=== PATIENT | female | born 1955 | race Caucasian/White ===

== ENCOUNTER → 2017-05-05 | Day surgery (SDC) | payer BC ==
[2017-04-10 08:31] VITALS: Ht 156.2 cm; Wt 59.1 kg
[~2017-05-05] VITALS: Ht 156.2 cm; Wt 59.1 kg
[~2017-05-05] MED LIST: 500ML BSS 0.3ML EPI 1:1000PF IRRIG ONE; ACETAMINOPHEN 325 MG TAB PO PRN; ALBU18002 INH; AMVISC PLUS 0.8ML SYRINGE INT OCU ONE; ASPCH81X PO; ATOR-24 PO; ATROPINE SULFATE 0.1 MG/ML 5ML SYR IV PRN; BSS FLUSH ONE; CALC600T9 PO; CYAN500T13 PO; EpHEDrine SULFATE INJ 50 MG/ML AMP IV PRN; EpINEphrine INJ 1MG/ML AMP 1 MG/ML AMP ONE; FLUT1INH7 INH; GABA-113 PO; LACTATED RINGER'S 1000ML 500 ML IV SCH; LIDOCAINE 3.5% OPH GEL PER APPLICATION CHARGE ONE; LIDOCAINE HCL 1% MPF 2 ML VIAL ONE; METO25TA56 PO; MIDAZOLAM HCL 1 MG/ML 2ML VIAL ONE; NTRGSL/4 UT; PANT40TA PO; POVIDONE-IODINE OP SOLN 30 ML BTL ONE; PROPARACAINE 0.5% OP SOLN PER DROP CHARGE OPR SCH; ROPI0.25 PO; ROPI1TAB PO; SUMA100T15 PO; TICA1TAB PO; TOBRAMYCIN/DEXAMETHASONE OPH OINT PER APPLN CHARGE ONE; VITAMIN D3 PO
--- NOTE | 2017-05-05 11:14 | History & Physical Bridge - [place] ---
H&P Re-Evaluation Bridge Note: I have examined the patient, reviewed the History & Physical and in the interval since the performance of the History & Physical I have noted the following changes of clinical significance: Diagnosis: Right Cataract Procedure: Right Cataract Removal with Lens Implant No changes noted
[2017-05-05] MEDS: PHENYLEPHRINE HCL 2.5% OP SOLN PER DROP CHARGE OPR SCH ×2 (11:16→11:21)
[2017-05-05] MEDS: TROPICAMIDE 1% OP SOLN PER DROP CHARGE OPR SCH ×2 (11:17→11:22)
[2017-05-05] MEDS: CYCLOPENTOLATE HCL 1% OP SOLN PER DROP CHARGE OPR SCH ×2 (11:18→11:23)
[2017-05-05] MEDS: KETOROLAC 0.5% OP SOLN PER DROP CHARGE OPR SCH ×2 (11:19→11:24)
[2017-05-05] MEDS: GATIFLOXACIN OP SOLN PER DROP CHARGE OPR SCH ×2 (11:20→11:30)
--- NOTE | 2017-05-05 12:20 | [facility] Operative Report ---
Operative Report Date of Service May 05, 2017. Operative Report 1. PREOPERATIVE DIAGNOSIS: Cataract of the right eye. 2. POSTOPERATIVE DIAGNOSIS: Same. 3. PROCEDURE: Phacoemulsification with intraocular lens implantation of the right eye. SURGEON: Dr. Marcello Hernandez. ANESTHESIA: Topical Lidocaine gel, 1% Non- Preserved intracameral Lidocaine, and monitored intravenous sedation. INDICATIONS FOR THE PROCEDURE: The patient is a 61 - year-old female with a history of cataract of the right eye causing significant visual impairment. The details of the proposed procedure were explained to the patient who asked appropriate questions and following discussion of all risks, benefits and alternatives agreed to have the procedure done. 4. OPERATION AND FINDINGS: DESCRIPTION OF PROCEDURE: After informed consent was obtained, the patient was brought to the Operating Room at the [facility]. The patient was placed in a supine position and then the right eye was prepped and draped in the usual sterile fashion for intraocular surgery. A drop of topical Lidocaine gel was placed in the operative eye. A wire lid speculum was then placed in the fornices. A corneal paracentesis was then created temporally. The Non-Preserved Lidocaine was then instilled into the anterior chamber. The anterior chamber was then pressurized with viscoelastic. A 2.0 mm clear corneal incision was then created temporally. A cystotome was inserted into the anterior chamber and used to create a tear in the anterior lens capsule. This capsular tear was then used to create a small flap and the flap was dragged in a counterclockwise direction in order to create a continuous curvilinear capsulorrhexis. Hydrodissection was accomplished with balanced salt solution. Phacoemulsification of the lens nucleus was then performed in a standard [id number] technique. The phaco time was 16 seconds with an average power of 10 %. The remaining cortical material was removed using irrigation aspiration. The capsular bag was then filled with viscoelastic. A [employer]ch [employer] Lomb MI60L +19.5 diopters lens was then loaded into the injector and injected into the capsular bag. The remaining viscoelastic was removed with the irrigation aspiration handpiece. The wound was hydrated and then checked and found to be watertight. The intraocular pressure was checked and found to be adequate. The wire lid speculum was removed and the patient's face was cleaned and dried. TobraDex ointment was placed in the inferior fornix. The patient was discharged to the Recovery Room having tolerated the procedure well. There were no complications. The patient will be seen tomorrow in the office for follow-up. I attest to the content of the Intraoperative Record and any orders documented therein. Any exceptions are noted below.
--- NOTE | 2017-05-05 12:21 | Discharge Instructions-SurgCtr ---
Discharge Instructions Date of Service May 05, 2017. Visit Reason for Visit: Right Cataract Discharge Discharge Diagnosis / Problem: cataract Discharge Goals Goal(s): Improve function Activity Recommendations Activity Limitations: per Instructions/Follow-up section Anesthesia . Post Anesthesia Instructions: If you have had General Anesthesia or IV Sedation: * Do not drive today. * Resume driving when surgeon permits. * Do not make important decisions or sign legal documents today. * Call surgeon for: 1. Temperature elevations greater than 101 degrees F. 2. Uncontrollable pain. 3. Excessive bleeding. 4. Persistent nausea and vomiting. 5. Medication intolerance (nausea, vomiting or rash). * For nausea and vomiting use only clear liquids such as: tea, soda, bouillon until nausea subsides, then gradually increase diet as tolerated. * If you have any concerns or questions, call your surgeon's office. If physician is unavailable and it is an emergency, call 911 or go to the nearest emergency room. . Diet Recommendations Home Diet: resume previous diet Procedures Procedures Performed: Right Cataract Phacoemulsification With Intraocular Lens Implant Pending Studies Studies pending at discharge: no Medical Emergencies . Who to Call and When: Medical Emergencies: If at any time you feel your situation is an emergency, please call 911 immediately. . Non-Emergent Contact Non-Emergency issues call your: Oriental Medicine Practitioner . . "Provider Documentation" section prepared by Marcello Hernandez. .
[2017-05-05 12:23] VITALS: TEMP 36.8
[2017-05-05 12:55] VITALS: BP 116/71; PULSE 65; O2SAT 97
--- NOTE | 2017-05-05 12:59 | Anesthesia Progress Nt - [facility] ---
Anesthesia Post Op Note Date & Time May 05, 2017 at 12:59 Vital Signs Pain Intensity: 0 Vital Signs Past 12 Hours Date Time Temp Pulse Resp B/P (MAP) Pulse Ox O2 Delivery O2 Flow Rate FiO2 05/05/17 12:55 65 16 116/71 (86) 97 Room Air 05/05/17 12:23 36.8 59 20 109/75 (86) 97 Room Air 05/05/17 11:01 36.0 59 20 121/60 (80) 99 Room Air Notes Mental Status: alert / awake / arousable, participated in evaluation Pt Amnestic to Procedure: Yes Nausea / Vomiting: adequately controlled Pain: adequately controlled Airway Patency, RR, SpO2: stable & adequate BP & HR: stable & adequate Hydration State: stable & adequate Anesthetic Complications: no major complications apparent
== END | disposition home or self-care (01) ==
LOC: X.SURG 10:44
PROVIDERS: ATTEND Ophthalmology
DX: H26.9 Unspecified cataract (principal); J45.909 Unspecified asthma, uncomplicated; E78.4 Other hyperlipidemia; K21.9 Gastro-esophageal reflux disease without esophagitis; I25.119 Atherosclerotic heart disease of native coronary artery with unspecified angina pectoris; F17.200 Nicotine dependence, unspecified, uncomplicated; I25.2 Old myocardial infarction; I10 Essential (primary) hypertension; Z86.718 Personal history of other venous thrombosis and embolism; Z91.040 Latex allergy status; Z88.0 Allergy status to penicillin; Z88.2 Allergy status to sulfonamides; Z79.899 Other long term (current) drug therapy; Z98.890 Other specified postprocedural states

== ENCOUNTER → 2017-05-19 | Day surgery (SDC) | payer BC ==
[2017-05-07 09:12] VITALS: Ht 156.2 cm; Wt 59.1 kg
[~2017-05-19] VITALS: Ht 156.2 cm; Wt 59.1 kg
[~2017-05-19] MED LIST changes: +FENTANYL CITRATE INJ 50 MCG/1 ML 2 ML VIAL IV PRN; +OCUCOAT 1 ML SOLN IO ONE; +ONDANSETRON INJ 2 MG/ML 2 ML VIAL IV PRN; +PROPARACAINE 0.5% OP SOLN PER DROP CHARGE OPL SCH; -PROPARACAINE 0.5% OP SOLN PER DROP CHARGE OPR SCH
[2017-05-19] MEDS: PHENYLEPHRINE HCL 2.5% OP SOLN PER DROP CHARGE OPL SCH ×2 (11:15→11:21)
[2017-05-19] MEDS: TROPICAMIDE 1% OP SOLN PER DROP CHARGE OPL SCH ×2 (11:17→11:22)
[2017-05-19] MEDS: CYCLOPENTOLATE HCL 1% OP SOLN PER DROP CHARGE OPL SCH ×2 (11:18→11:23)
--- NOTE | 2017-05-19 11:18 | History & Physical Bridge - [place] ---
H&P Re-Evaluation Bridge Note: I have examined the patient, reviewed the History & Physical and in the interval since the performance of the History & Physical I have noted the following changes of clinical significance Diagnosis: Left Cataract Procedure: Left Cataract Removal with Lens Implant : No changes noted
[2017-05-19] MEDS: KETOROLAC 0.5% OP SOLN PER DROP CHARGE OPL SCH ×2 (11:19→11:24)
[2017-05-19] MEDS: GATIFLOXACIN OP SOLN PER DROP CHARGE OPL SCH ×2 (11:20→11:25)
--- NOTE | 2017-05-19 11:58 | [facility] Operative Report ---
Operative Report Date of Service May 19, 2017. Operative Report 1. PREOPERATIVE DIAGNOSIS: Cataract of the left eye. 2. POSTOPERATIVE DIAGNOSIS: Same. 3. PROCEDURE: Phacoemulsification with intraocular lens implantation of the left eye. SURGEON: Dr. Marcello Hernandez. ANESTHESIA: Topical Lidocaine gel, 1% Non- Preserved intracameral Lidocaine, and monitored intravenous sedation. INDICATIONS FOR THE PROCEDURE: The patient is a 61 - year-old female with a history of cataract of the left eye causing significant visual impairment. The details of the proposed procedure were explained to the patient who asked appropriate questions and following discussion of all risks, benefits and alternatives agreed to have the procedure done. 4. OPERATION AND FINDINGS: DESCRIPTION OF PROCEDURE: After informed consent was obtained, the patient was brought to the Operating Room at the [facility]. The patient was placed in a supine position and then the left eye was prepped and draped in the usual sterile fashion for intraocular surgery. A drop of topical Lidocaine gel was placed in the operative eye. A wire lid speculum was then placed in the fornices. A corneal paracentesis was then created temporally. The Non-Preserved Lidocaine was then instilled into the anterior chamber. The anterior chamber was then pressurized with viscoelastic. A 2.0 mm clear corneal incision was then created temporally. A cystotome was inserted into the anterior chamber and used to create a tear in the anterior lens capsule. This capsular tear was then used to create a small flap and the flap was dragged in a counterclockwise direction in order to create a continuous curvilinear capsulorrhexis. Hydrodissection was accomplished with balanced salt solution. Phacoemulsification of the lens nucleus was then performed in a standard [id number]-nzajlxc technique. The phaco time was 17 seconds with an average power of 9 %. The remaining cortical material was removed using irrigation aspiration. The capsular bag was then filled with viscoelastic. A [employer]ch [employer] Lomb MI60L +19.5 diopters lens was then loaded into the injector and injected into the capsular bag. The remaining viscoelastic was removed with the irrigation aspiration handpiece. The wound was hydrated and then checked and found to be watertight. The intraocular pressure was checked and found to be adequate. The wire lid speculum was removed and the patient's face was cleaned and dried. TobraDex ointment was placed in the inferior fornix. The patient was discharged to the Recovery Room having tolerated the procedure well. There were no complications. The patient will be seen tomorrow in the office for follow-up. I attest to the content of the Intraoperative Record and any orders documented therein. Any exceptions are noted below.
--- NOTE | 2017-05-19 11:59 | Discharge Instructions-SurgCtr ---
Discharge Instructions Date of Service May 19, 2017. Visit Reason for Visit: Left Cataract Discharge Discharge Diagnosis / Problem: cataract Discharge Goals Goal(s): Improve function Activity Recommendations Activity Limitations: per Instructions/Follow-up section Anesthesia . Post Anesthesia Instructions: If you have had General Anesthesia or IV Sedation: * Do not drive today. * Resume driving when surgeon permits. * Do not make important decisions or sign legal documents today. * Call surgeon for: 1. Temperature elevations greater than 101 degrees F. 2. Uncontrollable pain. 3. Excessive bleeding. 4. Persistent nausea and vomiting. 5. Medication intolerance (nausea, vomiting or rash). * For nausea and vomiting use only clear liquids such as: tea, soda, bouillon until nausea subsides, then gradually increase diet as tolerated. * If you have any concerns or questions, call your surgeon's office. If physician is unavailable and it is an emergency, call 911 or go to the nearest emergency room. . Diet Recommendations Home Diet: resume previous diet Procedures Procedures Performed: Left Eye Cataract Phacoemulsification With Intraocular Lens Implant Pending Studies Studies pending at discharge: no Medical Emergencies . Who to Call and When: Medical Emergencies: If at any time you feel your situation is an emergency, please call 911 immediately. . Non-Emergent Contact Non-Emergency issues call your: Insecticide Maker . . "Provider Documentation" section prepared by Marcello Hernandez. .
[2017-05-19 12:02] VITALS: TEMP 36.6
--- NOTE | 2017-05-19 12:27 | Anesthesia Progress Nt - [facility] ---
Anesthesia Post Op Note Date & Time May 19, 2017 at 12:27 Vital Signs Pain Intensity: 0 Vital Signs Past 12 Hours Date Time Temp Pulse Resp B/P (MAP) Pulse Ox O2 Delivery O2 Flow Rate FiO2 05/19/17 12:02 36.6 66 16 115/70 (85) 95 Room Air 05/19/17 11:05 36.7 64 18 107/71 (83) 97 Room Air Notes Mental Status: alert / awake / arousable, participated in evaluation Pt Amnestic to Procedure: Yes Nausea / Vomiting: adequately controlled Pain: adequately controlled Airway Patency, RR, SpO2: stable & adequate BP & HR: stable & adequate Hydration State: stable & adequate Anesthetic Complications: no major complications apparent
[2017-05-19 12:41] VITALS: BP 104/72; PULSE 74; O2SAT 95
== END | disposition home or self-care (01) ==
LOC: X.SURG 09:45
PROVIDERS: ATTEND Ophthalmology
DX: H26.9 Unspecified cataract (principal); F17.210 Nicotine dependence, cigarettes, uncomplicated; K21.9 Gastro-esophageal reflux disease without esophagitis; I25.119 Atherosclerotic heart disease of native coronary artery with unspecified angina pectoris; E55.9 Vitamin D deficiency, unspecified; M81.0 Age-related osteoporosis without current pathological fracture; G25.81 Restless legs syndrome; E78.4 Other hyperlipidemia; Z79.899 Other long term (current) drug therapy; Z79.82 Long term (current) use of aspirin; Z79.52 Long term (current) use of systemic steroids; Z88.0 Allergy status to penicillin; Z88.2 Allergy status to sulfonamides; I25.2 Old myocardial infarction; Z88.8 Allergy status to other drugs, medicaments and biological substances; Z86.718 Personal history of other venous thrombosis and embolism

== ENCOUNTER 2021-03-20 15:52 | Observation (INO) ==
[2021-03-20 16:22] LABS: Basophils # (auto) 0.02 K/uL (0-0.2); Basophils % (auto) 0.2 %; Eosinophils # (auto) 0.67 K/uL (0-0.5); Eosinophils % (auto) 8.1 %; Hematocrit (blood only) 33.3 % (37-47); Immature Granulocytes # (auto) 0.04 K/uL (0.00-0.02); Immature Granulocytes % (auto) 0.5 %; Lymphocytes # (auto) 0.94 K/uL (1.2-3.4); Lymphocytes % (auto) 11.3 %; Mean Corpuscular Volume 93.3 fL (80-100); Mean Platelet Volume 9.6 fL (7.4-10.4); Monocytes # (auto) 0.77 K/uL (0.11-0.59); Monocytes % (auto) 9.3 %; Neutrophils # (auto) 5.85 K/uL (1.4-6.5); Neutrophils % (auto) 70.6 %; Platelet Count 326 K/uL (130-400); RDW Coefficient of Variation 17.3 % (11.5-14.5); RDW Standard Deviation 59.4 fL (36.4-46.3); Red Blood Count 3.57 M/uL (4.2-5.4); White Blood Count 8.29 K/uL (4.8-10.8)
[2021-03-20 16:45] LABS: Alanine Aminotransferase 10 U/L (7-52); Albumin Globulin Ratio 1.1 (0.9-2); Albumin Level 3.4 gm/dl (3.4-5.0); Alkaline Phosphatase 64 U/L (34-104); Anion Gap 8 (3-11); Aspartate Aminotransferase 10 U/L (13-39); BUN Creatinine Ratio 18.9 (10-20); Bilirubin,Total 0.3 mg/dl (0.2-1.0); Blood Urea Nitrogen 17 mg/dl (6-23); Calcium 9.3 mg/dl (8.5-10.1); Carbon Dioxide 27 mmol/L (21-32); Chloride 106 mmol/L (98-107); Creatinine Clr Calc Pharmacy 58.2 ml/min; D Dimer 2630 ug/L FEU (0-500); Est GFR (African American) 78.3 ml/min; Est GFR (Non-African American) 67.6 ml/min; Globulin 3.1 gm/dl (2.5-4.0); Glucose 95 mg/dl (70-99(Fasting)); Lipase 5 U/L (11-82); Potassium 3.6 mmol/L (3.5-5.1); Sodium 141 mmol/L (136-145); Total Protein 6.5 gm/dl (6.0-8.3)
[2021-03-20 17:06] LABS: Troponin I < 0.03 ng/ml (0-0.04)
--- NOTE | 2021-03-20 17:16 | Emergency Department Note ---
Impression & Plan Shortness of breath, Substernal chest pain, Elevated d-dimer ED Provider Note INFORMANT: Patient ED PROVIDER(S): Paul Iglesias MD CHIEF COMPLAINT: PLAN: Disposition: Admitted Condition: Good Outpatient prescription management: none Referral: None MEDICAL DECISION MAKING: Patient presented to the emergency department because of exertional shortness of breath and chest pain. A work-up was initiated. Her ECG did not show any acute findings. The patient had some mild opacities noted in the bilateral bases on chest x-ray. She was diagnosed with a multifocal pneumonia previously. The patient's troponin, BNP and CBC were unremarkable. The patient's chemistry panel was negative. Her D-dimer was significantly elevated. Given her prior history CT imaging of the chest was performed again. This revealed no evidence of thromboembolic disease. Patchy density noted again but were unchanged. Procalcitonin was added and was negative. Infectious etiology seems less likely given the patient's antibiotic treatment and lab results coupled with the CT findings. She does note exertional chest discomfort and with her prior cardiac history further management was felt to be appropriate. Consultation was made with Dr. Jose Flores, [facility] hospitalist service. Patient was evaluated in the ER admitted for further management. Triage Nursing notes reviewed and agree them. Vital Signs: reviewed and remarkable for no significant abnormalities Differential diagnosis: Cardiac ischemia, aortic dissection, pulmonary embolism, pneumothorax, pneumonia, pericarditis, myocarditis, esophageal rupture, GERD, cholecystitis, pancreatitis, musculoskeletal, as well as other pathologies. Diagnostics interpreted by me: ECG: Twelve-lead ECG reveals normal sinus rhythm at 80 bpm. Incomplete right bundle branch block. Nonspecific ST. When compared to prior ECG right bundle b ranch block pattern is similar with an RSR prime pattern noted previously. No significant changes in the ST segments. Cardiac Monitoring: Cardiac monitoring ordered by me: The patient was placed on continuous cardiac monitoring and observed. It revealed a normal sinus rhythm at 92 beats per minute without ectopy or evidence of dysrhythmia. Imaging studies: Chest x-ray and CT scan as noted above. HPI: The patient is a 65 year old female who presents to the Emergency Room with complaints of chest pain. This started over the last 2 to 3 days and is worsening. The patient also notes the following associated symptoms, shortness of breath. The patient states that she had similar symptoms about 2 weeks ago. She was seen in the emergency department. Chest imaging raise concerns for multifocal pneumonia. Covid testing negative. Patient was treated with prednisone and doxycycline. She stated she was feeling somewhat better with the prednisone and the chest discomfort improved. She then noted with exertion or any physical activity her symptoms returned over the last few days. The patient has taken no new medication other than the prednisone and doxycycline for relieving factors. Current pain is rated as 4/10. Pt denies LOC, headache, fevers, chills, diaphoresis, visual changes, neck pain, nausea, vomiting, abdominal pain, back pain, melena, hematochezia, urinary symptoms, numbness, weakness, lymphadenopathy, rash, or other complaints. ROS: See above HPI for pertinent positives & negatives. A total of 10 systems reviewed and were otherwise negative. PAST MEDICAL HISTORY:See Below , PE, ACS, small cell lung cancer PAST SURGICAL HISTORY:See Below, cardiac stent FAMILY HISTORY:See Below SOCIAL HISTORY:See Below, HOME MEDICATIONS:See Below ALLERGIES:See Below VITALS:See Below PHYSICAL EXAMINATION: GENERAL: Awake, alert, well-appearing, in no distress HENT: Normocephalic, atraumatic. Oropharynx unremarkable. EYES: Normal conjunctiva. Sclera non-icteric. NECK: Inspection normal. Non-tender. Supple. No nuchal rigidity. FROM. No masses. RESPIRATORY: Clear to auscultation. No wheezes. No rales. Normal respiratory effort. CARDIAC: Normal rate. Normal rhythm. No murmurs. No rubs. Extremities warm and well perfused. Pulses equal. No JVD. GI: Soft, non-distended. No tenderness to palpation. No rebound or guarding. No masses. RECTAL: Deferred. MUSCULOSKELETAL: Atraumatic. Chest examination reveals no tenderness. The back is symmetrical on inspection without obvious abnormality. There is no CVA tenderness to palpation. No joint edema. LOWER EXTREMITIES: Calves are equal size bilaterally and non-tender. No edema. No discoloration. NEURO: Normal sensorium. No sensory or motor deficits noted. SKIN: No rash or jaundice noted. Paul Iglesias MD Past Med/Surg History Social History Smoking Status: Never smoker Feels Safe at Home: Yes Allergies Allergies Allergy/AdvReac Type Severity Reaction Status Date / Time Penicillins Allergy Intermediate RED/ITCHING Verified 03/20/21 16:39 WITH SWELLING Sulfa (Sulfonamide Allergy Intermediate ITCHING/RED Verified 03/20/21 16:39 Antibiotics) latex AdvReac Intermediate RASH/BLISTE Verified 03/20/21 16:39 RS ADHESIVE AdvReac Intermediate Blisters Uncoded 03/20/21 16:39 Home Meds Home Medications Medication Instructions Recorded Confirmed ropinirole 1 mg tablet 1 mg PO HS 03/09/21 03/20/21 aspirin 81 mg tablet,delayed 81 mg PO DAILY@1200 03/20/21 03/20/21 release calcium carbonate 600 mg-vitamin 1 tab PO BID 03/20/21 03/20/21 D3 10 mcg (400 unit) tablet (Calcium 600 + D(3)) cholecalciferol (vitamin D3) 25 25 mcg PO DAILY@1200 03/20/21 03/20/21 mcg (1,000 unit) tablet (Vitamin D3) cyanocobalamin (vitamin B-12) 500 1,000 mcg PO DAILY@1200 03/20/21 03/20/21 mcg tablet (Vitamin B-12) doxycycline hyclate 100 mg capsule 100 mg PO BID 03/20/21 03/20/21 ferrous sulfate 325 mg (65 mg 325 mg PO TID 03/20/21 03/20/21 iron) tablet gabapentin 300 mg capsule 300 mg PO TID 03/20/21 03/20/21 magnesium oxide 400 mg PO BID 03/20/21 03/20/21 metoprolol tartrate 25 mg tablet 25 mg PO BID 03/20/21 03/20/21 montelukast 10 mg tablet 10 mg PO HS 03/20/21 03/20/21 pantoprazole 40 mg tablet,delayed 40 mg PO BID 03/20/21 03/20/21 release potassium chloride 20 mEq 40 meq PO BID 03/20/21 03/20/21 tablet,extended release(part/cryst) ropinirole 0.25 mg tablet 0.5 mg PO DAILY 03/20/21 03/20/21 rosuvastatin 40 mg tablet 90 mg PO HS 03/20/21 03/20/21 sucralfate 1 gram tablet 1 g PO ACHS 03/20/21 03/20/21 Results & Data (ED) Vital Signs Vital Signs - 24 hr 03/20/21 15:59 03/20/21 16:45 03/20/21 17:00 Temperature 36.5 C Temperature Source Temporal Artery Scan Pulse Rate 100 H Pulse Rate [Apical] 86 Respiratory Rate 22 22 Respiratory Effort / Characteristics Non-Labored Spontaneous Respiratory Depth Normal Blood Pressure 130/45 L Blood Pressure [Left Arm] 99/70 L Blood Pressure Mean 73 Blood Pressure Mean [Left Arm] 79 Pulse Oximetry 97 95 Oxygen Delivery Method Room Air Room Air Room Air Sepsis Recent Fever Within 48 Hours No Sepsis New/Unexplained Change in Mental Status N/A Sepsis Action Taken by Nursing No Action Required 03/20/21 17:18 03/20/21 18:00 Temperature Temperature Source Pulse Rate Pulse Rate [Apical] 77 Respiratory Rate 18 Respiratory Effort / Characteristics Non-Labored Spontaneous Respiratory Depth Normal Blood Pressure Blood Pressure [Left Arm] 118/75 Blood Pressure Mean Blood Pressure Mean [Left Arm] 89 Pulse Oximetry 97 100 Oxygen Delivery Method Room Air Room Air Sepsis Recent Fever Within 48 Hours Sepsis New/Unexplained Change in Mental Status Sepsis Action Taken by Nursing Laboratory Data Result diagrams: 03/20/21 16:07 03/20/21 16:07 Lab Results 03/20/21 03/20/21 03/20/21 Range/Units 16:07 16:07 16:07 WBC 8.29 (4.8-10.8) K/uL RBC 3.57 L (4.2-5.4) M/uL Hgb 10.0 L (12.0-16.0) g/dL Hct 33.3 L (37-47) % MCV 93.3 (80-100) fL MCH 28.0 (25-34) pg MCHC 30.0 L (32-36) g/dL RDW Std Deviation 59.4 H (36.4-46.3) fL RDW Coeff of Cail 17.3 H (11.5-14.5) % Plt Count 326 (130-400) K/uL MPV 9.6 (7.4-10.4) fL Immature Gran % (Auto) 0.5 % Neut % (Auto) 70.6 % Lymph % (Auto) 11.3 % Banner % (Auto) 9.3 % Eos % (Auto) 8.1 % Baso % (Auto) 0.2 % Neut # (Auto) 5.85 (1.4-6.5) K/uL Lymph # (Auto) 0.94 L (1.2-3.4) K/uL Banner # (Auto) 0.77 H (0.11-0.59) K/uL Eos # (Auto) 0.67 H (0-0.5) K/uL Baso # (Auto) 0.02 (0-0.2) K/uL Immature Gran # (Auto) 0.04 H (0.00-0.02) K/uL APTT (21.0-31.0) Seconds PTT Ratio D-Dimer 2630 H* (0-500) ug/L FEU Sodium 141 (136-145) mmol/L Potassium 3.6 (3.5-5.1) mmol/L Chloride 106 (98-107) mmol/L Carbon Dioxide 27 (21-32) mmol/L Anion Gap 8 (3-11) BUN 17 (6-23) mg/dl Creatinine 0.90 (0.6-1.2) mg/dl Est Cr Clr Drug Dosing 58.2 ml/min Est GFR ( Amer) 78.3 ml/min Est GFR (Non-Af Amer) 67.6 ml/min BUN/Creatinine Ratio 18.9 (10-20) Glucose 95 (70-99(Fasting)) mg/dl Calcium 9.3 (8.5-10.1) mg/dl Total Bilirubin 0.3 (0.2-1.0) mg/dl AST 10 L (13-39) U/L ALT 10 (7-52) U/L Alkaline Phosphatase 64 (34-104) U/L Troponin I < 0.03 (0-0.04) ng/ml B-Natriuretic Peptide (0-100) pg/ml Total Protein 6.5 (6.0-8.3) gm/dl Albumin 3.4 (3.4-5.0) gm/dl Globulin 3.1 (2.5-4.0) gm/dl Albumin/Globulin Ratio 1.1 (0.9-2) Lipase 5 L (11-82) U/L Procalcitonin (0-0.5) ng/ml SARS-CoV-2, RNA, NAAT (NEGATIVE) 03/20/21 03/20/21 03/20/21 Range/Units 16:07 16:07 16:07 WBC (4.8-10.8) K/uL RBC (4.2-5.4) M/uL Hgb (12.0-16.0) g/dL Hct (37-47) % MCV (80-100) fL MCH (25-34) pg MCHC (32-36) g/dL RDW Std Deviation (36.4-46.3) fL RDW Coeff of [place] (11.5-14.5) % Plt Count (130-400) K/uL MPV (7.4-10.4) fL Immature Gran % (Auto) % Neut % (Auto) % Lymph % (Auto) % Banner % (Auto) % Eos % (Auto) % Baso % (Auto) % Neut # (Auto) (1.4-6.5) K/uL Lymph # (Auto) (1.2-3.4) K/uL Banner # (Auto) (0.11-0.59) K/uL Eos # (Auto) (0-0.5) K/uL Baso # (Auto) (0-0.2) K/uL Immature Gran # (Auto) (0.00-0.02) K/uL APTT 28.2 (21.0-31.0) Seconds PTT Ratio 1.1 D-Dimer (0-500) ug/L FEU Sodium (136-145) mmol/L Potassium (3.5-5.1) mmol/L Chloride (98-107) mmol/L Carbon Dioxide (21-32) mmol/L Anion Gap (3-11) BUN (6-23) mg/dl Creatinine (0.6-1.2) mg/dl Est Cr Clr Drug Dosing ml/min Est GFR ( Amer) ml/min Est GFR (Non-Af Amer) ml/min BUN/Creatinine Ratio (10-20) Glucose (70-99(Fasting)) mg/dl Calcium (8.5-10.1) mg/dl Total Bilirubin (0.2-1.0) mg/dl AST (13-39) U/L ALT (7-52) U/L Alkaline Phosphatase (34-104) U/L Troponin I (0-0.04) ng/ml B-Natriuretic Peptide 119 H (0-100) pg/ml Total Protein (6.0-8.3) gm/dl Albumin (3.4-5.0) gm/dl Globulin (2.5-4.0) gm/dl Albumin/Globulin Ratio (0.9-2) Lipase (11-82) U/L Procalcitonin 0.06 (0-0.5) ng/ml SARS-CoV-2, RNA, NAAT (NEGATIVE) 03/20/21 Range/Units 16:25 WBC (4.8-10.8) K/uL RBC (4.2-5.4) M/uL Hgb (12.0-16.0) g/dL Hct (37-47) % MCV (80-100) fL MCH (25-34) pg MCHC (32-36) g/dL RDW Std Deviation (36.4-46.3) fL RDW Coeff of [place] (11.5-14.5) % Plt Count (130-400) K/uL MPV (7.4-10.4) fL Immature Gran % (Auto) % Neut % (Auto) % Lymph % (Auto) % Banner % (Auto) % Eos % (Auto) % Baso % (Auto) % Neut # (Auto) (1.4-6.5) K/uL Lymph # (Auto) (1.2-3.4) K/uL Banner # (Auto) (0.11-0.59) K/uL Eos # (Auto) (0-0.5) K/uL Baso # (Auto) (0-0.2) K/uL Immature Gran # (Auto) (0.00-0.02) K/uL APTT (21.0-31.0) Seconds PTT Ratio D-Dimer (0-500) ug/L FEU Sodium (136-145) mmol/L Potassium (3.5-5.1) mmol/L Chloride (98-107) mmol/L Carbon Dioxide (21-32) mmol/L Anion Gap (3-11) BUN (6-23) mg/dl Creatinine (0.6-1.2) mg/dl Est Cr Clr Drug Dosing ml/min Est GFR ( Amer) ml/min Est GFR (Non-Af Amer) ml/min BUN/Creatinine Ratio (10-20) Glucose (70-99(Fasting)) mg/dl Calcium (8.5-10.1) mg/dl Total Bilirubin (0.2-1.0) mg/dl AST (13-39) U/L ALT (7-52) U/L Alkaline Phosphatase (34-104) U/L Troponin I (0-0.04) ng/ml B-Natriuretic Peptide (0-100) pg/ml Total Protein (6.0-8.3) gm/dl Albumin (3.4-5.0) gm/dl Globulin (2.5-4.0) gm/dl Albumin/Globulin Ratio (0.9-2) Lipase (11-82) U/L Procalcitonin (0-0.5) ng/ml SARS-CoV-2, RNA, NAAT NEGATIVE (NEGATIVE) Administered Medications Lactated Ringer's (Lr) 1,000 mls @ 80 mls/hr IV .[id number] ONE Stop: 03/21/21 09:08 Last Admin: 03/20/21 21:38 Dose: 80 mls/hr Documented by: [id number] Discontinued Medications Ioversol (Optiray 320 125ml) 109 ml IV ONCE ONE Stop: 03/20/21 17:27 Last Admin: 03/20/21 17:29 Dose: 109 ml Documented by: [id number] Imaging Data Radiologist's Impression: Chest X-Ray 03/20/21 16:07 XR chest 1V portable CLINICAL HISTORY: Atypical chest pain. COMPARISON STUDY: Chest radiograph and chest CT March 09, 2021. FINDINGS: Postoperative findings within the right hemithorax are noted. A small right pleural effusion has slightly increased since prior exam. Left midlung linear density is unchanged. There are persistent bibasilar opacities. There is no evidence for pulmonary edema. IMPRESSION: 1. Slight increase in size of a small right pleural effusion. 2. Persistent bilateral airspace opacities with interstitial thickening. The findings favor an infectious process. ACT 112: Negative or not required by law. Electronically signed by: Rolando Escamilla M.D. 03/20/2021 5:18 PM Chest CTA 03/20/21 17:11 CT ANGIOGRAPHY OF THE CHEST, PULMONARY EMBOLUS PROTOCOL CLINICAL HISTORY: SOB, +dimer, hx of small cell ca and pNA COMPARISON STUDY: Chest CT March 09, 2021. Chest radiograph performed earlier today. TECHNIQUE: Following IV administration of 109 mL of Optiray, helical axial images of the chest were obtained utilizing the pulmonary embolus protocol. Max imal intensity projections and sagittal and coronal reformats were viewed on an independent 3D workstation. IV contrast was administered without complication. Automated exposure control was utilized for the study. A dose lowering technique was utilized adhering to the principles of ALARA. CT DOSE: 272.03 mGy.cm FINDINGS: No pulmonary emboli are identified. Mild cardiomegaly is noted. No pericardial effusion. No enlarged axillary, mediastinal or hilar lymph nodes are present. There is no pneumothorax. Small right pleural effusion is similar to CT of March 09, 2021. Central airways are patent. Multiple irregular opacities throughout the lungs are unchanged since exam of March 09, 2021. These include a 3.6 cm linear subpleural density within the left upper lobe on image 186 of 283 and multiple small right upper and right middle lobe densities. There are stable postoperative findings following right lower lobectomy. No suspicious lesions are identified within visualized bony thorax. Upper abdomen is u nremarkable. Appearance of the chest is unchanged. Emphysema is present. IMPRESSION: 1. No pulmonary emboli identified. 2. Status post right lower lobectomy. No change in a small right pleural effusion. 3. No change in multifocal irregular opacities within the lungs since chest CT of March 09, 2021. These remain nonspecific. An infectious process is considered somewhat less likely given stability. A neoplastic etiology cannot be excluded. Several these likely reflect scarring. Follow-up chest CT in 3 months to ensure stability is recommended. 4. No thoracic lymphadenopathy. ACT 112: Negative or not required by law. Electronically signed by: Rolando Escamilla M.D. 03/20/2021 5:45 PM Discharge Plan Visit Data Chief Complaint: Chest Pain Stated Complaint: R CHEST PAIN WHEN COUGHING ED Provider: Paul Iglesias Discharge Problem: Shortness of breath, Substernal chest pain, Elevated d-dimer
--- NOTE | 2021-03-20 17:19 | XRay Report ---
XR chest 1V portable CLINICAL HISTORY: Atypical chest pain. COMPARISON STUDY: Chest radiograph and chest CT March 09, 2021. FINDINGS: Postoperative findings within the right hemithorax are noted. A small right pleural effusio n has slightly increased since prior exam. Left midlung linear density is unchanged. There are persis tent bibasilar opacities. There is no evidence for pulmonary edema. IMPRESSION: 1. Slight increase in size of a small right pleural effusion. 2. Persistent bilateral airspace opacities with interstitial thickening. The findings favor an infect ious process. ACT 112: Negative or not required by law. Electronically signed by: Rolando Escamilla M.D. 03/20/2021 5:18 PM
[2021-03-20] MEDS ORDERED: OPTIRAY 320 125ml IV ONE (17:26)
--- NOTE | 2021-03-20 17:47 | CT Scan Report ---
CT ANGIOGRAPHY OF THE CHEST, PULMONARY EMBOLUS PROTOCOL CLINICAL HISTORY: SOB, +dimer, hx of small cell ca and pNA COMPARISON STUDY: Chest CT March 09, 2021. Chest radiograph performed earlier today. TECHNIQUE: Following IV administration of 109 mL of Optiray, helical axial images of the chest were o btained utilizing the pulmonary embolus protocol. Maximal intensity projections and sagittal and cor onal reformats were viewed on an independent 3D workstation. IV contrast was administered without co mplication. Automated exposure control was utilized for the study. A dose lowering technique was ut ilized adhering to the principles of ALARA. CT DOSE: 272.03 mGy.cm FINDINGS: No pulmonary emboli are identified. Mild cardiomegaly is noted. No pericardial effusion. N o enlarged axillary, mediastinal or hilar lymph nodes are present. There is no pneumothorax. Small ri ght pleural effusion is similar to CT of March 09, 2021. Central airways are patent. Multiple irreg ular opacities throughout the lungs are unchanged since exam of March 09, 2021. These include a 3.6 cm linear subpleural density within the left upper lobe on image 186 of 283 and multiple small right upper and right middle lobe densities. There are stable postoperative findings following right lower lobectomy. No suspicious lesions are identified within visualized bony thorax. Upper abdomen is unre markable. Appearance of the chest is unchanged. Emphysema is present. IMPRESSION: 1. No pulmonary emboli identified. 2. Status post right lower lobectomy. No change in a small right pleural effusion. 3. No change in multifocal irregular opacities within the lungs since chest CT of March 09, 2021. T hese remain nonspecific. An infectious process is considered somewhat less likely given stability. A neoplastic etiology cannot be excluded. Several these likely reflect scarring. Follow-up chest CT in 3 months to ensure stability is recommended. 4. No thoracic lymphadenopathy. ACT 112: Negative or not required by law. Electronically signed by: Rolando Escamilla M.D. 03/20/2021 5:45 PM
--- NOTE | 2021-03-20 20:31 | History & Physical Report ---
Date of Service March 20, 2021 Assessment & Plan (1) Atypical chest pain: Plan: With exertional S OB symptoms (suspect COPD component) Right pleural effusion with elevated BNP ? CHF Rule out ACS History CAD status post stent SCLC status post surgery/chemoradiation, patient follows with [facility] oncology hx COPD, improved symptoms after recent outpatient steroid doxycycline course hx postop pulmonary embolism status post anticoagulation Choking symptoms with meals rule out esophageal dysfunction chronic anemia, hemoglobin at baseline past tobacco abuse OBS PCU Continue patient's home aspirin for secondary CAD prevention Lasix trial for pleural effusion given elevated BNP Follow troponin TTE, Cardiology consult Re: Chest pain, history CAD N.p.o. until patient seen by cardiology in a.m. in anticipation of procedure Aspiration precautions, RESERVOIR CARETAKER evaluation DVT prophylaxis. Lovenox subcu Full code Patient requesting update from providers. Mr. Lior Bronson, contact #[phone]. Text document was generated using [email or web address] voice recognition software. It may contain grammatical or spelling errors. Kindly contact undersigned for clarification of any documentation item in question. History of Present Illness Chief Complaint: Chest pain, shortness of breath Primary Care Provider: Donaldo Flaherty MD History obtained from patient, family, and records. Medical history significant for CAD status post stent, SCLC status post surgery/chemoradiation, COPD, history postop pulmonary embolism status post anticoagulation, chronic anemia (baseline hemoglobin 8-9 ), past tobacco abuse. Patient seen at the ER 12 days ago for 1 week history of cough and right sided chest pain symptoms. Episode of choking symptoms with meals/water intake for some time now CT chest did not show pulmonary emboli. Small right pleural effusion, status post right lower lobectomy. Emphysema. Multifocal irregular opacities within the lungs noted. Patient discharged on doxycycline and prednisone course. Improved symptoms as per patient after compliance with medication regimen 3 days history of achy recurrent right-sided chest pain/right upper abdominal pain symptoms with shortness of breath mostly on exertion. No unusual cough symptoms. No fluid retention as per patient. Patient brought by to the ER. 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 Allergies Allergy/AdvReac Type Severity Reaction Status Date / Time Penicillins Allergy Intermediate RED/ITCHING Verified 03/20/21 16:39 WITH SWELLING Sulfa (Sulfonamide Allergy Intermediate ITCHING/RED Verified 03/20/21 16:39 Antibiotics) latex AdvReac Intermediate RASH/BLISTE Verified 03/20/21 16:39 RS ADHESIVE AdvReac Intermediate Blisters Uncoded 03/20/21 16:39 Home Medications Medication Instructions Recorded Confirmed Type ropinirole 1 mg tablet 1 mg PO HS 03/09/21 03/20/21 History aspirin 81 mg tablet,delayed 81 mg PO DAILY@1200 03/20/21 03/20/21 History release calcium carbonate 600 mg-vitamin 1 tab PO BID 03/20/21 03/20/21 History D3 10 mcg (400 unit) tablet (Calcium 600 + D(3)) cholecalciferol (vitamin D3) 25 25 mcg PO DAILY@1200 03/20/21 03/20/21 History mcg (1,000 unit) tablet (Vitamin D3) cyanocobalamin (vitamin B-12) 500 1,000 mcg PO DAILY@1200 03/20/21 03/20/21 History mcg tablet (Vitamin B-12) doxycycline hyclate 100 mg capsule 100 mg PO BID 03/20/21 03/20/21 History ferrous sulfate 325 mg (65 mg 325 mg PO TID 03/20/21 03/20/21 History iron) tablet gabapentin 300 mg capsule 300 mg PO TID 03/20/21 03/20/21 History magnesium oxide 400 mg PO BID 03/20/21 03/20/21 History metoprolol tartrate 25 mg tablet 25 mg PO BID 03/20/21 03/20/21 History montelukast 10 mg tablet 10 mg PO HS 03/20/21 03/20/21 History pantoprazole 40 mg tablet,delayed 40 mg PO BID 03/20/21 03/20/21 History release potassium chloride 20 mEq 40 meq PO BID 03/20/21 03/20/21 History tablet,extended release(part/cryst) ropinirole 0.25 mg tablet 0.5 mg PO DAILY 03/20/21 03/20/21 History rosuvastatin 40 mg tablet 90 mg PO HS 03/20/21 03/20/21 History sucralfate 1 gram tablet 1 g PO ACHS 03/20/21 03/20/21 History Past Med/Surg History Social History Smoking Status: Former smoker Hx Alcohol Use: Yes Hx Substance Use: No Preferred Language: Yoruba Communication Ability: Effective Retail Experience Specialist Required: No Beliefs That Will Affect Care: None Current Living Situation: Spouse Feels Safe at Home: Yes Safety Concerns: Feels Safe At This Time Review of Systems Review of Systems: As per HPI, all 10 systems reviewed, all other ROS negative Physical Exam Physical Exam: GENERAL: Comfortable, obese, slightly hard of hearing, no respiratory distress SKIN: Pallor, warm HEENT: Alopecia, pale palpebral conjunctivae, no ptosis, dry buccal mucosa NECK : Supple, short neck, no tenderness CHEST : Decreased breath sounds right, no tenderness HEART : RRR, no obvious murmurs ABDOMEN: Some distention, nontender EXTREMITIES : No LE swelling/tenderness, no other conspicuous deformities noted NEUROLOGIC : Coherent, no facial asymmetry, mild hearing impairment, no other gross focality Results & Data Results & Data ([facility]) Vital Signs (Past 12 Hours) Vital Signs Temp Pulse Pulse Resp BP BP Pulse Ox 03/20/21 18:00 77 18 118/75 100 03/20/21 17:18 97 03/20/21 17:00 86 22 99/70 L 95 03/20/21 15:59 36.5 C 100 H 22 130/45 L 97 Laboratory Results Laboratory Results WBC 8.29 K/uL (4.8-10.8) 03/20/21 16:07 RBC 3.57 M/uL (4.2-5.4) L 03/20/21 16:07 Hgb 10.0 g/dL (12.0-16.0) L 03/20/21 16:07 Hct 33.3 % (37-47) L 03/20/21 16:07 MCV 93.3 fL (80-100) 03/20/21 16:07 MCH 28.0 pg (25-34) 03/20/21 16:07 MCHC 30.0 g/dL (32-36) L 03/20/21 16:07 RDW Std Deviation 59.4 fL (36.4-46.3) H 03/20/21 16:07 RDW Coeff of Cali 17.3 % (11.5-14.5) H 03/20/21 16:07 Plt Count 326 K/uL (130-400) 03/20/21 16:07 MPV 9.6 fL (7.4-10.4) 03/20/21 16:07 Immature Gran % (Auto) 0.5 % 03/20/21 16:07 Neut % (Auto) 70.6 % 03/20/21 16:07 Lymph % (Auto) 11.3 % 03/20/21 16:07 [place] % (Auto) 9.3 % 03/20/21 16:07 Eos % (Auto) 8.1 % 03/20/21 16:07 Baso % (Auto) 0.2 % 03/20/21 16:07 Neut # (Auto) 5.85 K/uL (1.4-6.5) 03/20/21 16:07 Lymph # (Auto) 0.94 K/uL (1.2-3.4) L 03/20/21 16:07 [place] # (Auto) 0.77 K/uL (0.11-0.59) H 03/20/21 16:07 Eos # (Auto) 0.67 K/uL (0-0.5) H 03/20/21 16:07 Baso # (Auto) 0.02 K/uL (0-0.2) 03/20/21 16:07 Immature Gran # (Auto) 0.04 K/uL (0.00-0.02) H 03/20/21 16:07 D-Dimer 2630 ug/L FEU (0-500) H* 03/20/21 16:07 Sodium 141 mmol/L (136-145) 03/20/21 16:07 Potassium 3.6 mmol/L (3.5-5.1) 03/20/21 16:07 Chloride 106 mmol/L (98-107) 03/20/21 16:07 Carbon Dioxide 27 mmol/L (21-32) 03/20/21 16:07 Anion Gap 8 (3-11) 03/20/21 16:07 BUN 17 mg/dl (6-23) 03/20/21 16:07 Creatinine 0.90 mg/dl (0.6-1.2) 03/20/21 16:07 Est Cr Clr Drug Dosing 58.2 ml/min 03/20/21 16:07 Est GFR ( Amer) 78.3 ml/min 03/20/21 16:07 Est GFR (Non-Af Amer) 67.6 ml/min 03/20/21 16:07 BUN/Creatinine Ratio 18.9 (10-20) 03/20/21 16:07 Glucose 95 mg/dl (70-99(Fasting)) 03/20/21 16:07 Calcium 9.3 mg/dl (8.5-10.1) 03/20/21 16:07 Total Bilirubin 0.3 mg/dl (0.2-1.0) 03/20/21 16:07 AST 10 U/L (13-39) L 03/20/21 16:07 ALT 10 U/L (7-52) 03/20/21 16:07 Alkaline Phosphatase 64 U/L (34-104) 03/20/21 16:07 Troponin I < 0.03 ng/ml (0-0.04) 03/20/21 16:07 B-Natriuretic Peptide 119 pg/ml (0-100) H 03/20/21 16:07 Total Protein 6.5 gm/dl (6.0-8.3) 03/20/21 16:07 Albumin 3.4 gm/dl (3.4-5.0) 03/20/21 16:07 Globulin 3.1 gm/dl (2.5-4.0) 03/20/21 16:07 Albumin/Globulin Ratio 1.1 (0.9-2) 03/20/21 16:07 Lipase 5 U/L (11-82) L 03/20/21 16:07 Procalcitonin 0.06 ng/ml (0-0.5) 03/20/21 16:07 SARS-CoV-2, RNA, NAAT NEGATIVE (NEGATIVE) 03/20/21 16:25 Impressions Chest X-Ray 03/20/21 16:07 XR chest 1V portable CLINICAL HISTORY: Atypical chest pain. COMPARISON STUDY: Chest radiograph and chest CT March 09, 2021. FINDINGS: Postoperative findings within the right hemithorax are noted. A small right pleural effusion has slightly increased since prior exam. Left midlung linear density is unchanged. There are persistent bibasilar opacities. There is no evidence for pulmonary edema. IMPRESSION: 1. Slight increase in size of a small right pleural effusion. 2. Persistent bilateral airspace opacities with interstitial thickening. The findings favor an infectious process. ACT 112: Negative or not required by law. Electronically signed by: Rolando Escamilla M.D. 03/20/2021 5:18 PM Chest CTA 03/20/21 17:11 CT ANGIOGRAPHY OF THE CHEST, PULMONARY EMBOLUS PROTOCOL CLINICAL HISTORY: SOB, +dimer, hx of small cell ca and pNA COMPARISON STUDY: Chest CT March 09, 2021. Chest radiograph performed earlier today. TECHNIQUE: Following IV administration of 109 mL of Optiray, helical axial image s of the chest were obtained utilizing the pulmonary embolus protocol. Maximal intensity projections and sagittal and coronal reformats were viewed on an independent 3D workstation. IV contrast was administered without complication. Automated exposure control was utilized for the study. A dose lowering technique was utilized adhering to the principles of ALARA. CT DOSE: 272.03 mGy.cm FINDINGS: No pulmonary emboli are identified. Mild cardiomegaly is noted. No pericardial effusion. No enlarged axillary, mediastinal or hilar lymph nodes are present. There is no pneumothorax. Small right pleural effusion is similar to CT of March 09, 2021. Central airways are patent. Multiple irregular opacities throughout the lungs are unchanged since exam of March 09, 2021. These include a 3.6 cm linear subpleural density within the left upper lobe on image 186 of [id number] and multiple small right upper and right middle lobe densities. There are stable postoperative findings following right lower lobectomy. No suspicious lesions are identified within visualized bony thorax. Upper abdomen is unremarkable. Appearance of the chest is unchanged. Emphysema is present. IMPRESSION: 1. No pulmonary emboli identified. 2. Status post right lower lobectomy. No change in a small right pleural effusion. 3. No change in multifocal irregular opacities within the lungs since chest CT of March 09, 2021. These remain nonspecific. An infectious process is considered somewhat less likely given stability. A neoplastic etiology cannot be excluded. Several these likely reflect scarring. Follow-up chest CT in 3 months to ensure stability is recommended. 4. No thoracic lymphadenopathy. ACT 112: Negative or not required by law. Electronically signed by: Rolando Escamilla M.D. 03/20/2021 5:[address] abdomen pelvis initial read: The solid organs are within normal limits. No obstruction. Normal appendix. No fracture. Small loculated right pleural effusion. Indeterminate spiculated nodules of the right lung measure up to 1 cm. EKG as per my interpretation:Rate 90, NSR, incomplete RBBB, no ischemia
[2021-03-20] MEDS ORDERED: LACTATED RINGER'S 1,000 ML IV ONE (20:39)
[2021-03-20 20:52] LABS: Partial Thromboplastin Ratio 1.1; Partial Thromboplastin Time 28.2 Seconds (21.0-31.0)
[2021-03-20] MEDS ORDERED: MONTELUKAST SODIUM 10 MG TABLET PO SCH (21:41)
[2021-03-20] MEDS ORDERED: ROSUVASTATIN CALCIUM 20 MG TAB PO SCH (21:41)
[2021-03-20] MEDS ORDERED: ACETAMINOPHEN 325 MG TAB PO PRN (21:41)
[2021-03-20] MEDS ORDERED: rOPINIRole HCL 1 MG TABLET PO SCH (21:41)
[2021-03-20] MEDS ORDERED: traMADol HCL 50 MG TABLET PO PRN (21:41)
[2021-03-20] MEDS ORDERED: MoRPHine SULFATE 4 MG/ML 1 ML CARP\\VIAL IV PRN (21:41)
[2021-03-20] MEDS ORDERED: PROMETHAZINE HCL 12.5 MG in SODIUM CHLORIDE 0.9% 50 ML IV PRN (21:41)
[2021-03-20] MEDS: DOXYCYCLINE HYCLATE 100 MG CAP PO SCH (23:34)
[2021-03-20] MEDS: METOPROLOL TARTRATE 25 MG TAB PO SCH (23:35)
[2021-03-20] MEDS: SUCRALFATE 1 GM TAB PO SCH (23:35)
[2021-03-20] MEDS: PANTOprazole 40 MG TAB PO SCH (23:36)
[2021-03-20] MEDS: FERROUS SULFATE 325 MG TAB PO SCH (23:37)
[2021-03-20] MEDS: GABAPENTIN 300 MG CAP PO SCH (23:37)
[2021-03-21 05:47] LABS: Basophils # (auto) 0.01 K/uL (0-0.2); Basophils % (auto) 0.1 %; Eosinophils # (auto) 0.62 K/uL (0-0.5); Hematocrit (blood only) 29.4 % (37-47); Immature Granulocytes # (auto) 0.07 K/uL (0.00-0.02); Lymphocytes # (auto) 0.95 K/uL (1.2-3.4); Lymphocytes % (auto) 13.7 %; Mean Corpuscular Hgb Conc 30.6 g/dL (32-36); Mean Corpuscular Volume 91.3 fL (80-100); Monocytes # (auto) 0.62 K/uL (0.11-0.59); Neutrophils # (auto) 4.65 K/uL (1.4-6.5); Neutrophils % (auto) 67.2 %; Partial Thromboplastin Ratio 1.1; Partial Thromboplastin Time 28.8 Seconds (21.0-31.0); Platelet Count 278 K/uL (130-400); RDW Coefficient of Variation 17.3 % (11.5-14.5); RDW Standard Deviation 58.4 fL (36.4-46.3); Red Blood Count 3.22 M/uL (4.2-5.4); White Blood Count 6.92 K/uL (4.8-10.8)
[2021-03-21 06:09] LABS: Troponin I < 0.03 ng/ml (0-0.04)
[2021-03-21 06:20] LABS: Anion Gap 9 (3-11); BUN Creatinine Ratio 14.5 (10-20); Blood Urea Nitrogen 12 mg/dl (6-23); Calcium 8.6 mg/dl (8.5-10.1); Carbon Dioxide 24 mmol/L (21-32); Chloride 105 mmol/L (98-107); Chol HDL Ratio 3.4 (0-5); Cholesterol 112 mg/dl (0-200); Creatinine Clr Calc Pharmacy 63.1 ml/min; Est GFR (African American) 86.4 ml/min; Est GFR (Non-African American) 74.5 ml/min; Glucose 114 mg/dl (70-99(Fasting)); HDL Cholesterol 33 mg/dl; LDL Cholesterol Calculated 60 mg/dl; Potassium 4.1 mmol/L (3.5-5.1); Sodium 138 mmol/L (136-145); Triglycerides 95 mg/dl (0-150); VLDL Cholesterol 19 mg/dl (0-30)
[2021-03-21] MEDS ORDERED: FUROSEMIDE INJ 20 MG/2 ML VIAL IV ONE (06:30)
--- NOTE | 2021-03-21 08:26 | CT Scan Report ---
CT OF THE ABDOMEN AND PELVIS WITHOUT CONTRAST CLINICAL HISTORY: Right-sided abdominal pain. History of lung cancer. COMPARISON STUDY: No previous studies for comparison. TECHNIQUE: Axial images of the abdomen and pelvis were obtained without IV contrast. Images were revi ewed in the axial, sagittal, and coronal planes. Automated exposure control was utilized for the mihir dy. A dose lowering technique was utilized adhering to the principles of ALARA. FINDINGS: Postoperative findings consistent with right lower lobectomy are noted. A small right pleur al effusion is noted. Note is again made of multiple indeterminate irregular nodules within the lower lungs, including a 1.9 cm right lower lung nodule on image 35 of 461. These are unchanged since [facility] t CT of March 09, 2021. No pneumatosis, free air or portal venous gas is present. Unenhanced images of the liver, spleen, adrenal glands, kidneys and pancreas are unremarkable. There is no hydronephro sis. Sensitivity for detection of urinary calculi is diminished given excreted contrast. There is no evidence for a bowel obstruction. The appendix is normal. No abdominal or pelvic lymphadenopathy is p resent. Postoperative findings within the lumbosacral spine are present. There is no ascites. No bili anshu or pancreatic ductal dilatation is present. There is no peripancreatic or pericholecystic infiltr ation. IMPRESSION: 1. No acute process or evidence for metastatic disease within the abdomen or pelvis on unenhanced exa m. 2. Status post right lower lobectomy. Small right pleural effusion. Redemonstration of multiple indet erminate irregular nodules within the lower lungs which could be neoplastic or infectious. Short-term follow-up chest CT is recommended in 3 months. ACT 112: Negative or not required by law. Electronically signed by: Rolando Escamilla M.D. 03/21/2021 8:25 AM
--- NOTE | 2021-03-21 08:29 | Cardiology Consultation ---
Date of Consultation March 21, 2021 Assessment & Plan (1) Atypical chest pain: (2) Multifocal pneumonia: (3) Cough: (4) SCLC (small cell lung carcinoma): (5) History of lobectomy of lung: (6) COPD (chronic obstructive pulmonary disease): (7) Tobacco abuse, in remission: 65-year-old woman with small cell lung carcinoma status post right lobectomy with persistent pain postoperatively. The discomfort is completely reproducible with palpation or movement. Ischemic work-up is unremarkable: Without ischemic EKG changes, negative troponin x2 and no wall motion abnormalities on echocardiogram. I do not see any cardiac component to her chest discomfort. No further cardiac testing or invention necessary at this time. Okay to DC to home from a cardiac standpoint. No medication changes from a cardiac standpoint. History of Present Illness Reason for Consultation: chest pain Requesting Physician: Dr. Ortiz Attending Physician: Domingo Ortiz MD History of Present Illness It was my pleasure to see Mrs. Bronson in cardiac consultation today March 21, 2021. She is a very pleasant yet medically complex 65-year-old woman who presented to [facility] emergency department with complaints of chest pain. Patient states that she has been having rather constant chest discomfort ever since undergoing lobectomy several weeks ago. She describes a right-sided pain that is worse with movement, deep inhalation or palpation. She was recently diagnosed with COVID-19 pneumonia and had significant coughing which worsened the discomfort. Her coughing has subsided but the pain persists. She states that she feels short of breath at rest necessitating her to take deeper breaths. With these deeper breaths the pain worsens. Past Medical History: Coronary artery disease 2016 s/p RCA stent x 2 Dyslipidemia Fibromyalgia Gastroesophageal reflux disease 07/05/2013 Migraine 02/02/2014 Pulmonary embolism (HCC) 01/2015 Following lumbar fusion surgery Tobacco abuse Allergies Allergy/AdvReac Type Severity Reaction Status Date / Time Penicillins Allergy Intermediate RED/ITCHING Verified 03/20/21 16:39 WITH SWELLING Sulfa (Sulfonamide Allergy Intermediate ITCHING/RED Verified 03/20/21 16:39 Antibiotics) latex AdvReac Intermediate RASH/BLISTE Verified 03/20/21 16:39 RS ADHESIVE AdvReac Intermediate Blisters Uncoded 03/20/21 16:39 Home Medications Medication Instructions Recorded Confirmed Type ropinirole 1 mg tablet 1 mg PO HS 03/09/21 03/20/21 History aspirin 81 mg tablet,delayed 81 mg PO DAILY@1200 03/20/21 03/20/21 History release calcium carbonate 600 mg-vitamin 1 tab PO BID 03/20/21 03/20/21 History D3 10 mcg (400 unit) tablet (Calcium 600 + D(3)) cholecalciferol (vitamin D3) 25 25 mcg PO DAILY@1200 03/20/21 03/20/21 History mcg (1,000 unit) tablet (Vitamin D3) cyanocobalamin (vitamin B-12) 500 1,000 mcg PO DAILY@1200 03/20/21 03/20/21 History mcg tablet (Vitamin B-12) doxycycline hyclate 100 mg capsule 100 mg PO BID 03/20/21 03/20/21 History ferrous sulfate 325 mg (65 mg 325 mg PO TID 03/20/21 03/20/21 History iron) tablet gabapentin 300 mg capsule 300 mg PO TID 03/20/21 03/20/21 History magnesium oxide 400 mg PO BID 03/20/21 03/20/21 History metoprolol tartrate 25 mg tablet 25 mg PO BID 03/20/21 03/20/21 History montelukast 10 mg tablet 10 mg PO HS 03/20/21 03/20/21 History pantoprazole 40 mg tablet,delayed 40 mg PO BID 03/20/21 03/20/21 History release potassium chloride 20 mEq 40 meq PO BID 03/20/21 03/20/21 History tablet,extended release(part/cryst) ropinirole 0.25 mg tablet 0.5 mg PO DAILY 03/20/21 03/20/21 History rosuvastatin 40 mg tablet 90 mg PO HS 03/20/21 03/20/21 History sucralfate 1 gram tablet 1 g PO ACHS 03/20/21 03/20/21 History Patient History Social History Smoking Status: Former smoker Hx Alcohol Use: Yes Hx Substance Use: No Preferred Language: Montserratian Communication Ability: Effective Electric Engine Mechanic Required: No Beliefs That Will Affect Care: None Current Living Situation: Spouse Feels Safe at Home: Yes Safety Concerns: Feels Safe At This Time Review of Systems Review of Systems: All systems reviewed & are unremarkable except as noted in HPI & below Physical Exam Physical Exam: Physical Exam: General: Awake, alert and oriented x 3. No acute distress. HEENT: Normocephalic, atraumatic. Pupils equal, round and reactive to light and accommodation. Extraocular muscles are intact. Anicteric sclera. Moist mucous membranes. Neck: No JVD. No bruit. Cardiovascular: Regular. No S-4. Normal S-1 and S-2. No S-3. No murmurs, rubs or gallops. Pulmonary: Clear to auscultation bilaterally. No rales, rhonchi, or wheezing. Abdomen: Bowel sounds x 4, soft. No rebound, guarding or tenderness. No organomegaly. Extremities: No clubbing, cyanosis or edema. +2 pedal pulses bilaterally. Skin: Warm and dry. Musculoskeletal: Diffuse chest wall tenderness across the right precordium with reproduction of discomfort with palpation Results & Data ([facility]) Vital Signs (Past 12 Hours) Vital Signs Pulse Resp BP Pulse Ox Pulse Ox 03/21/21 01:42 77 16 100/62 96 03/21/21 00:52 74 20 136/75 93 03/20/21 22:55 76 23 114/66 96 03/20/21 21:41 92 03/20/21 21:08 83 20 114/57 L 100
[2021-03-21] MEDS ORDERED: ENOXAPARIN INJ 40 MG/0.4 ML SYR SQ SCH (09:00)
[2021-03-21] MEDS ORDERED: rOPINIRole HCL 0.25 MG TABLET PO SCH (09:00)
[2021-03-21] MEDS: PANTOprazole 40 MG TAB PO SCH (09:18)
[2021-03-21] MEDS: FERROUS SULFATE 325 MG TAB PO SCH (09:19)
[2021-03-21] MEDS: DOXYCYCLINE HYCLATE 100 MG CAP PO SCH (09:20)
[2021-03-21] MEDS: GABAPENTIN 300 MG CAP PO SCH (09:20)
[2021-03-21] MEDS: METOPROLOL TARTRATE 25 MG TAB PO SCH (09:21)
[2021-03-21] MEDS: SUCRALFATE 1 GM TAB PO SCH ×2 (09:21→12:36)
[2021-03-21] MEDS ORDERED: CYANOCOBALAMIN 500 MCG TABLET (VITAMIN B-12) PO SCH (12:00)
[2021-03-21] MEDS ORDERED: ASPIRIN 81 MG ECTAB PO SCH (12:00)
--- NOTE | 2021-03-21 13:11 | Hospitalist Progress Note ---
Date of Service March 21, 2021 Assessment & Plan (1) Atypical chest pain: Plan: Atypical chest pain Likely musculoskeletal in origin secondary to chronic cough --CTA:No pulmonary emboli identified. Status post right lower lobectomy. No change in a small right pleural effusion. No change in multifocal irregular opacities within the lungs since chest CT of March 09, 2021. These remain nonspecific. An infectious process is considered somewhat less likely given stability. A neoplastic etiology cannot be excluded. Several these likely reflect scarring. Follow-up chest CT in 3 months to ensure stability is recommended. No thoracic lymphadenopathy. --EKG showed no signs of acute ischemia Cardiac enzymes negative negative Echo showed no wall motion abnormality Appreciate cardiology input Pulmonary nodules CT as above Advised to follow-up with pulmonology/oncology upon discharge May need a repeat CT in 3 months for further evaluation Patient informs that she is scheduled for PET scan as outpatient Small Right Pleural Effusion Saturating well on room air Advised to follow-up with pulmonology as outpatient CAD S/P stent Continue home meds SCLC S/P surgery/chemoradiation Follows with [facility] oncology COPD Recently completed Steroid, doxycycline course No signs of exacerbation on exam H/O Postop PE S/P Anticoagulation Dysphagia S/P dilatation X2 as per patient Denies any odynophagia Patient prefers to get swallow study as outpatient Also reports that she is due for colonoscopy which is scheduled with her windsmith Advised to follow-up with gastroenterology as outpatient Anemia of chronic disease Hemoglobin at baseline Monitor Past tobacco abuse As per records DVT Px: Lovenox SQ Code Status Full code Admission and Anticipated Discharge Date Admission Date: March 20, 2021 Subjective Patient is seen and examined at bedside Currently denies any chest pain Reports chronic cough and chest discomfort occasionally with cough Denies any dyspnea, dizziness, nausea, abdominal pain Offers no other complaints Review of Systems Review of Systems: All systems reviewed & are unremarkable except as noted in Subjective Physical Exam Physical Exam: Physical Exam: Vitals signs as noted above General Appearance:Moderately built and nourished, no apparent distress Head: normocephalic, Atraumatic Eyes: normal inspection, EOMI Neck: supple, Trachea midline Respiratory/Chest: Normal breath sounds, CTA Cardiovascular: S1, S2, No murmur Abdomen/GI:Soft, Non tender, Bowel sounds present Extremities/Musculoskeletal:normal inspection, no edema Neurologic/Psych:AAOX3, grossly no focal neurological deficits Skin: normal color, warm Results & Data Results & Data ([facility]) Vital Signs (Past 12 Hours) Vital Signs Pulse Resp BP Pulse Ox 03/21/21 09:20 89 18 101/72 99 03/21/21 01:42 77 16 100/62 96 Laboratory Results Short CBC 03/20/21 03/21/21 Range/Units 16:07 05:22 WBC 8.29 6.92 (4.8-10.8) K/uL Hgb 10.0 L 9.0 L (12.0-16.0) g/dL Hct 33.3 L 29.4 L (37-47) % Plt Count 326 278 (130-400) K/uL BMP 03/20/21 03/21/21 16:07 05:22 Sodium 141 138 Potassium 3.6 4.1 Chloride 106 105 Carbon Dioxide 27 24 BUN 17 12 Creatinine 0.90 0.83 Glucose 95 114 H Calcium 9.3 8.6 Cardiac Enzymes 03/20/21 03/20/21 03/21/21 Range/Units 16:07 21:05 05:22 Troponin I < 0.03 < 0.03 < 0.03 (0-0.04) ng/ml 03/21/21 Range/Units 05:22 Troponin I Cancelled (0-0.04) ng/ml Liver Function 03/20/21 Range/Units 16:07 Total Bilirubin 0.3 (0.2-1.0) mg/dl AST 10 L (13-39) U/L ALT 10 (7-52) U/L Alkaline Phosphatase 64 (34-104) U/L Albumin 3.4 (3.4-5.0) gm/dl
--- NOTE | 2021-03-21 13:31 | Discharge Summary ---
Date of Service March 21, 2021 Admission HPI Per Admitting Provider History obtained from patient, family, and records. Medical history significant for CAD status post stent, SCLC status post surgery/chemoradiation, COPD, history postop pulmonary embolism status post anticoagulation, chronic anemia (baseline hemoglobin 8-9 ), past tobacco abuse. Patient seen at the ER 12 days ago for 1 week history of cough and right sided chest pain symptoms. Episode of choking symptoms with meals/water intake for some time now CT chest did not show pulmonary emboli. Small right pleural effusion, status post right lower lobectomy. Emphysema. Multifocal irregular opacities within the lungs noted. Patient discharged on doxycycline and prednisone course. Improved symptoms as per patient after compliance with medication regimen 3 days history of achy recurrent right-sided chest pain/right upper abdominal pain symptoms with shortness of breath mostly on exertion. No unusual cough symptoms. No fluid retention as per patient. Patient brought by to the ER. Medical History as above Surgical History : Breast lesion excision, carpal tunnel surgery, and fracture surgery, D&C, robotic thoracoscopy with lymphadenectomy, thoracoscopy lung lobectomy, breast cyst drainage, tonsillectomy/adenoidectomy, back surgery, dental surgery Family History : Dementia, breast cancer, colon cancer, heart disease Personal/Social history : Past tobacco abuse, occasional EtOH intake, prior work as a laborer wrecking and salvaging Admission Exam Per Admitting Provider Physical Exam Physical Exam: GENERAL: Comfortable, obese, slightly hard of hearing, no respiratory distress SKIN: Pallor, warm HEENT: Alopecia, pale palpebral conjunctivae, no ptosis, dry buccal mucosa NECK : Supple, short neck, no tenderness CHEST : Decreased breath sounds right, no tenderness HEART : RRR, no obvious murmurs ABDOMEN: Some distention, nontender EXTREMITIES : No LE swelling/tenderness, no other conspicuous deformities noted NEUROLOGIC : Coherent, no facial asymmetry, mild hearing impairment, no other gross focality Principal Diagnosis Atypical chest pain Pulmonary nodules Dysphagia Discharge Data Allergies Allergy/AdvReac Type Severity Reaction Status Date / Time Penicillins Allergy Intermediate RED/ITCHING Verified 03/20/21 16:39 WITH SWELLING Sulfa (Sulfonamide Allergy Intermediate ITCHING/RED Verified 03/20/21 16:39 Antibiotics) latex AdvReac Intermediate RASH/BLISTE Verified 03/20/21 16:39 RS ADHESIVE AdvReac Intermediate Blisters Uncoded 03/20/21 16:39 Consultations 03/20/21 19:13 ED Decision to Admit Stat 03/21/21 01:23 Consult Cardiology Routine Ordered Studies 03/20/21 17:11 CT angio chest PE protocol Stat 03/20/21 20:32 CT abd pelvis wo con Urgent Hospital Course (1) Atypical chest pain: Atypical chest pain Likely musculoskeletal in origin secondary to chronic cough --CTA:No pulmonary emboli identified. Status post right lower lobectomy. No change in a small right pleural effusion. No change in multifocal irregular opacities within the lungs since chest CT of March 09, 2021. These remain nonspecific. An infectious process is considered somewhat less likely given stability. A neoplastic etiology cannot be excluded. Several these likely reflect scarring. Follow-up chest CT in 3 months to ensure stability is recommended. No thoracic lymphadenopathy. --EKG showed no signs of acute ischemia Cardiac enzymes negative negative Echo showed no wall motion abnormality Appreciate cardiology input Pulmonary nodules CT: Status post right lower lobectomy. Small right pleural effusion. Redemonstration of multiple indeterminate irregular nodules within the lower lungs which could be neoplastic or infectious. Short-term follow-up chest CT is recommended in 3 months. Advised to follow-up with pulmonology/oncology upon discharge May need a repeat CT in 3 months for further evaluation Patient informs that she is scheduled for PET scan as outpatient Small Right Pleural Effusion Saturating well on room air Advised to follow-up with pulmonology as outpatient CAD S/P stent Continue home meds SCLC S/P surgery/chemoradiation Follows with [facility] oncology COPD Recently completed Steroid, doxycycline course No signs of exacerbation on exam H/O Postop PE S/P Anticoagulation Dysphagia S/P dilatation X2 as per patient Denies any odynophagia Patient prefers to get swallow study as outpatient Also reports that she is due for colonoscopy which is scheduled with her sheet metal assembler and riveter Advised to follow-up with gastroenterology as outpatient Anemia of chronic disease Hemoglobin at baseline Monitor Past tobacco abuse As per records DVT Px: Lovenox SQ Code Status Full code Total Time Total Time Spent Total Time Spent (In Minutes): 40 minutes Discharge Plan Discharge Items Patient Disposition: Home - Self-Care Reason For Visit: CP Discharge Diagnosis: Atypical chest pain Pulmonary nodules Dysphagia Activity: Per Instructions section Sexual Activity: Wait until after follow-up appointment Non-emergency contact: Primary Care Provider Call non-emergency contact if: you have any medication questions, your symptoms worsen, your pain is concerning for you and you have a fever Follow-up/Referrals: Donaldo Flaherty MD [Primary Care Provider] - (Date & Time 03/27/2021 11:00 AM Provider Donaldo Flaherty MD Department [facility] ) Diet: Heart Healthy Addtl Attending Provider Instructions: Follow-up with your primary care physician on 03/27/2021 at 11:00 am as scheduled Follow-up with your oncologist for possible repeat CT to further evaluate lung nodules as advised Follow-up with your sheet metal assembler and riveter for possible endoscopy as outpatient ---Get swallow study as outpatient as scheduled. Seek immediate medical attention if your symptoms reoccur or worsen Please take all medications as instructed on discharge list below. Please call if you have any questions or problems. You can reach a [facility] hospitalist on duty at [facility] 24 hours a day by calling [phone] Pending Studies at Discharge: No Stand-Alone Forms: My [facility], Smoking Cessation Medications and DC Order Prescriptions: Continued ropinirole 1 mg tablet 1 mg PO HS RF: 0 doxycycline hyclate 100 mg capsule 100 mg PO BID RF: 0 sucralfate 1 gram tablet 1 g PO ACHS RF: 0 aspirin 81 mg Tablet,Delayed Release (Dr/Ec) 81 mg PO DAILY@1200 RF: 0 potassium chloride 20 mEq tablet,ER particles/crystals 40 meq PO BID RF: 0 gabapentin 300 mg Capsule 300 mg PO TID RF: 0 rosuvastatin 40 mg tablet 90 mg PO HS RF: 0 cyanocobalamin (vitamin B-12) [Vitamin B-12] 500 mcg Tablet 1,000 mcg PO DAILY@1200 RF: 0 ropinirole 0.25 mg Tablet 0.5 mg PO DAILY RF: 0 pantoprazole 40 mg Tablet,Delayed Release (Dr/Ec) 40 mg PO BID RF: 0 ferrous sulfate 325 mg (65 mg iron) Tablet 325 mg PO TID RF: 0 montelukast 10 mg Tablet 10 mg PO HS RF: 0 metoprolol tartrate 25 mg Tablet 25 mg PO BID RF: 0 cholecalciferol (vitamin D3) [Vitamin D3] 25 mcg (1,000 unit) Tablet 25 mcg PO DAILY@1200 RF: 0 calcium carbonate-vitamin D3 [Calcium 600 + D(3)] 600 mg-10 mcg (400 unit) Tablet 1 tab PO BID RF: 0 magnesium oxide 400 mg magnesium Tablet 400 mg PO BID RF: 0 Discharge Orders: Discharge Order (Routine); Ordered 03/21/21 Ordered By: Domingo Ortiz Admission Data Admit Date/Time: 03/20/21 20:36 Attending Provider: Domingo Ortiz Admit Provider: Jose Flores Primary Care Provider: Donaldo Flaherty Other Providers: Jose Flores ; Matthew Chauhan ; Adam Stephens ; Xu Barrett ; Joaquín Mcneil ; Shaun Ricardo ; Paul Patel ; Eryn Cowan ; Martina Butt ; Pari Tyson ; Magan Shore
== END 2021-03-21 16:26 | disposition home or self-care (01) ==
LOC: EDINP 15:52 → ED 15:52 → EDINP 23:00